=== PATIENT | male | born 1955 | race Caucasian/White ===

== ENCOUNTER 2019-05-08 07:37 | Outpatient (RCR) | payer BC, SELFPAY ==
[2019-02-10 07:38] LABS: INR 2.5; Prothrombin Time 26.2 Seconds (9.64-11.0)
[2019-05-08 08:07] LABS: INR 2.4; Prothrombin Time 24.3 Seconds (9.64-11.0)
== END 2019-05-11 23:59 | disposition home or self-care (01) ==
LOC: CHSLAB 07:37
PROVIDERS: PCP Internal Medicine; Visit Provider Internal Medicine
DX: Z79.01 Long term (current) use of anticoagulants (principal)
CPT/HCPCS: 36415; 85610

== ENCOUNTER 2019-08-27 08:29 | Outpatient (RCR) | payer BC, SELFPAY ==
[2019-06-10 12:48] LABS: Prothrombin Time 29.5 Seconds (9.64-11.0)
[2019-07-15 10:47] LABS: INR 2.2; Prothrombin Time 21.9 Seconds (9.64-11.0)
[2019-08-27 09:14] LABS: INR 2.1; Prothrombin Time 21.1 Seconds (9.64-11.0)
== END 2019-09-08 23:59 | disposition home or self-care (01) ==
LOC: CHSLAB 08:29
PROVIDERS: PCP Internal Medicine; Visit Provider Internal Medicine
DX: Z79.01 Long term (current) use of anticoagulants (principal)
CPT/HCPCS: 36415; 85610

== ENCOUNTER 2019-10-01 06:57 | Outpatient (CLI) | payer BC, SELFPAY ==
[2019-10-01 07:11] LABS: Appearance Urine Clear (Clear); Basophils Absolute Auto 0.09 K/mm3 (0.00-0.10); Basophils Percent Auto 0.8 % (0.0-1.0); Bilirubin Urine Negative (Negative); Color Urine Yellow (Yellow); Eosinophils Absolute Auto 0.42 K/mm3 (0.02-0.50); Eosinophils Percent Auto 3.7 % (1.0-6.0); Glucose Urine UA Negative (Negative); Hemoglobin 15.5 g/dL (14.0-18.0); Immature Granulocyte Absolute 0.04 K/mm3 (0.00-0.00); Immature Granulocyte Percent A 0.3 % (0.0-0.0); Ketones Urine Negative (Negative); Leukocyte Esterase Ur Negative (Negative); Lymphocytes Absolute Auto 2.38 K/mm3 (1.10-4.50); Lymphocytes Percent Auto 20.8 % (18.0-42.0); Mean Corpuscular Hemoglobin 28.8 pg (27.0-31.0); Mean Corpuscular Volume 87.2 fL (78.0-102.0); Mean Platelet Volume 9.7 fl (8.7-11.0); Monocytes Absolute Auto 0.89 K/mm3 (0.10-0.90); Monocytes Percent Auto 7.8 % (2.0-11.0); Neutrophils Absolute Auto 7.6 K/mm3 (1.7-7.2); Neutrophils Percent Auto 66.6 % (50.0-70.0); Nitrate Urine Negative (Negative); Platelet Count Result 310 K/mm3 (150-420); Protein Urine Negative (Negative); Red Blood Count 5.39 M/mm3 (4.70-6.10); Specific Grav Ur 1.025 (1.010-1.020); Urobilinogen Urine 0.2 mg/dL (0.2-1.0); White Blood Count 11.4 K/mm3 (4.8-10.8); pH Urine 5.5 (5.0-8.0)
[2019-10-01 07:16] LABS: Add Urine Microscopic? YES; Bacteria Urine None seen /hpf; Blood Urine Trace-Intact (Negative); RBC Urine 0-2 /hpf (0-2); WBC Urine 0-3 /hpf (0-3)
[2019-10-01 07:21] LABS: INR 2.7; Prothrombin Time 26.5 Seconds (9.64-11.0)
[2019-10-01 09:24] LABS: Alanine Aminotransferase 32 U/L (16-63); Albumin Level 3.9 g/dL (3.4-5.0); Alkaline Phosphatase 126 U/L (46-116); Anion Gap 13.2 mmol/L (7-16); Aspartate Amino Transferase 19 U/L (15-37); Bilirubin,Total 0.2 mg/dL (0.00-1.00); Blood Urea Nitrogen 13 mg/dL (7-18); Calcium 8.9 mg/dL (8.5-10.1); Carbon Dioxide 30 mmol/L (21-32); Chloride 103 mmol/L (98-108); Cholesterol 160 mg/dL (0-200); Estimated Glomerular Filt Rate > 60; Glucose 90 mg/dL (70-99); HDL Direct 29 mg/dL (40-60); LDL Cholesterol Calculated 34 mg/dL (<130); Osmolality Calculated 294 mOsm/kg (285-295); Potassium 4.2 mmol/L (3.5-5.1); Sodium 142 mmol/L (136-145); Total Protein 7.1 g/dL (6.4-8.2); Triglycerides 486 mg/dL (0-150)
[2019-10-01 09:27] LABS: LDL Cholesterol Direct 61 mg/dL (0-130)
== END 2019-10-01 06:58 ==
PROVIDERS: PCP Internal Medicine; Visit Provider Internal Medicine
DX: Z79.01 Long term (current) use of anticoagulants (principal); E78.5 Hyperlipidemia, unspecified; Z12.5 Encounter for screening for malignant neoplasm of prostate; Z00.00 Encounter for general adult medical examination without abnormal findings
CPT/HCPCS: 36415; 80053; 80061; 81001; 83721; 84153; 85025; 85610; G0103

== ENCOUNTER 2019-10-23 09:46 | Outpatient (CLI) | payer BC, SELFPAY ==
--- NOTE | ~2019-10-23 | CT_ITS ---
EXAMINATION: CT lung screening DATE: 10/23/2019 10:17 INDICATION: Personal history of tobacco dependence, current smoker with 35 pack year history TECHNIQUE: Computed tomography (CT) of the chest was performed without intravenous contrast. The dose -length product (DLP) was 408.17 mGy-cm. Automated exposure control and iterative reconstruction tech TNC were employed. COMPARISON: 07/31/2018 FINDINGS: There is moderate emphysema. No suspicious pulmonary nodules are identified. Again seen are chronic and unchanged subpleural round glass and reticular opacities with an upper lung zone predomi nance, consistent with chronic interstitial lung disease. The lungs are free of focal airspace opacit ies. There is no pleural effusion or pneumothorax. Calcified pulmonary nodules and calcified right hi lar and mediastinal lymph nodes are consistent with old granulomatous disease. No pathologically enla rged thoracic lymph nodes are identified. The heart size is normal. There is moderate thoracic spondy losis. There is a 12 mm cyst of the right hepatic lobe. Changes of anterior fusion are noted in the lower cervical spine. IMPRESSION: 1. Lung-RADS category 1: Negative. Continue annual screening with noncontrast low-dose chest CT in 12 months. Reviewed, dictated and finalized at location A. IMPRESSION: 1. Lung-RADS category 1: Negative. Continue annual screening with noncontrast l ow-dose chest CT in 12 months.
== END 2019-10-23 09:47 | disposition home or self-care (01) ==
LOC: CHSIMG 09:48
PROVIDERS: PCP Internal Medicine; Visit Provider Internal Medicine
DX: Z12.2 Encounter for screening for malignant neoplasm of respiratory organs (principal); Z72.0 Tobacco use
CPT/HCPCS: G0297

== ENCOUNTER 2020-01-20 08:27 | Outpatient (RCR) | payer BC, SELFPAY ==
[2019-11-12 07:51] LABS: INR 3.3; Prothrombin Time 33.1 Seconds (9.64-11.0)
[2019-12-18 10:55] LABS: Prothrombin Time 29.5 Seconds (9.64-11.0)
[2020-01-20 09:01] LABS: INR 4.6; Prothrombin Time 45.3 Seconds (9.64-11.0)
== END 2020-02-10 23:59 | disposition home or self-care (01) ==
LOC: CHSLAB 08:27
PROVIDERS: PCP Internal Medicine; Visit Provider Internal Medicine
DX: Z79.01 Long term (current) use of anticoagulants (principal)
CPT/HCPCS: 36415; 85610

== ENCOUNTER 2020-04-01 10:07 | Outpatient (RCR) | payer BC, OTHER, SELFPAY ==
[2020-02-23 11:40] LABS: INR 2.4; Prothrombin Time 25.1 Seconds (9.50-12.10)
[2020-04-01 10:28] LABS: INR 3.3; Prothrombin Time 33.5 Seconds (9.50-12.10)
== END 2020-05-23 23:59 | disposition home or self-care (01) ==
LOC: CHSLAB 10:07
PROVIDERS: PCP Internal Medicine; Visit Provider Internal Medicine
DX: Z79.01 Long term (current) use of anticoagulants (principal)
CPT/HCPCS: 36415; 85610

== ENCOUNTER 2020-07-07 10:46 | Outpatient (RCR) | payer OTHER, SELFPAY ==
[2020-06-01 10:12] LABS: INR 4.4
[2020-07-07 11:05] LABS: INR 3.4; Prothrombin Time 34.5 Seconds (9.50-12.10)
== END 2020-08-30 23:59 | disposition home or self-care (01) ==
LOC: CHSLAB 10:46
PROVIDERS: PCP Internal Medicine; Visit Provider Internal Medicine
DX: Z79.01 Long term (current) use of anticoagulants (principal)
CPT/HCPCS: 36415; 85610

== ENCOUNTER 2020-07-07 13:04 | Outpatient (CLI) | payer OTHER, SELFPAY ==
--- NOTE | ~2020-07-07 | XR_ITS ---
EXAMINATION: XR chest 2V EXAM DATE: 07/07/2020 13:29 INDICATION: COPD, shortness of breath. TECHNIQUE: Frontal and lateral projections of the chest obtained and reviewed. There is no prior ana dy for comparison. FINDINGS: The lungs are hyperinflated which can be seen with chronic obstructive pulmonary disease ( a clinical diagnosis of functional impairment), but is not diagnostic of it. The lungs are clear. Th ere are no pleural effusions. The cardiomediastinal silhouette is within normal limits. There is no pneumothorax suspected. Mild thoracic spondylosis. Cervical fusion hardware. IMPRESSION: 1. No acute cardiopulmonary findings. 2. Hyperinflation. Reviewed, dictated and finalized at location B.
== END 2020-07-07 13:05 | disposition home or self-care (01) ==
LOC: CHSIMG 13:06
PROVIDERS: PCP Internal Medicine; Visit Provider Internal Medicine
DX: J44.1 Chronic obstructive pulmonary disease with (acute) exacerbation (principal)
CPT/HCPCS: 71046

== ENCOUNTER 2020-09-30 07:14 | Outpatient (CLI) | payer OTHER, SELFPAY ==
[2020-09-30 07:36] LABS: Basophils Absolute Auto 0.11 K/mm3 (0.00-0.10); Basophils Percent Auto 1.1 % (0.0-1.0); Eosinophils Absolute Auto 0.32 K/mm3 (0.02-0.50); Eosinophils Percent Auto 3.1 % (1.0-6.0); Hematocrit 47.8 % (40.0-54.0); Hemoglobin 15.5 g/dL (14.0-18.0); Immature Granulocyte Absolute 0.04 K/mm3 (0.00-0.00); Immature Granulocyte Percent A 0.4 % (0.0-0.0); Lymphocytes Absolute Auto 2.48 K/mm3 (1.10-4.50); Lymphocytes Percent Auto 23.9 % (18.0-42.0); Mean Corpuscular HGB Conc 32.4 g/dL (32.0-36.0); Mean Corpuscular Hemoglobin 28.4 pg (27.0-31.0); Mean Corpuscular Volume 87.5 fL (78.0-102.0); Mean Platelet Volume 10.1 fl (8.7-11.0); Monocytes Absolute Auto 0.79 K/mm3 (0.10-0.90); Monocytes Percent Auto 7.6 % (2.0-11.0); Neutrophils Absolute Auto 6.6 K/mm3 (1.7-7.2); Neutrophils Percent Auto 63.9 % (50.0-70.0); Platelet Count Result 357 K/mm3 (150-420); Red Blood Count 5.46 M/mm3 (4.70-6.10); Red Cell Distribution Width 14.4 % (11.6-14.4); White Blood Count 10.4 K/mm3 (4.8-10.8)
[2020-09-30 07:38] LABS: Add Urine Microscopic? YES; Appearance Urine Clear (Clear); Bilirubin Urine Negative (Negative); Blood Urine 1+ (Negative); Color Urine Light Yellow (Yellow); Glucose Urine UA Negative (Negative); Ketones Urine Negative (Negative); Leukocyte Esterase Ur Negative (Negative); Nitrate Urine Negative (Negative); Protein Urine Negative (Negative); Specific Grav Ur >= 1.030 (1.010-1.020); Urobilinogen Urine 0.2 mg/dL (0.2-1.0); pH Urine 5.5 (5.0-8.0)
[2020-09-30 07:58] LABS: INR 4.8; Prothrombin Time 47.6 Seconds (9.50-12.10)
[2020-09-30 08:21] LABS: RBC Urine 0-2 /hpf (0-2); WBC Urine None seen /hpf (0-3)
[2020-09-30 08:22] LABS: Bacteria Urine None seen /hpf
[2020-09-30 08:25] LABS: Alanine Aminotransferase 25 U/L (16-63); Albumin Level 3.9 g/dL (3.4-5.0); Alkaline Phosphatase 114 U/L (46-116); Anion Gap 10 mmol/L (8-16); Aspartate Amino Transferase 12 U/L (15-37); Bilirubin,Total 0.2 mg/dL (0.00-1.00); Blood Urea Nitrogen 14 mg/dL (7-18); Calcium 8.8 mg/dL (8.5-10.1); Carbon Dioxide 30 mmol/L (21-32); Chloride 105 mmol/L (98-108); Cholesterol 166 mg/dL (0-200); Estimated Glomerular Filt Rate > 60; Glucose 96 mg/dL (70-99); HDL Direct 28 mg/dL (40-60); LDL Cholesterol Calculated 53 mg/dL (<130); Osmolality Calculated 300 mOsm/kg (285-295); Potassium 3.9 mmol/L (3.5-5.1); Prostate Specific Antigen 1.4 ng/mL (< OR = 4.0); Sodium 145 mmol/L (136-145); Thyroid Stimulating Hormone 4.07 uIU/mL (0.36-3.74); Total Protein 7.2 g/dL (6.4-8.2); Triglycerides 426 mg/dL (0-150)
[2020-09-30 08:26] LABS: LDL Cholesterol Direct 76 mg/dL (0-130)
== END 2020-09-30 07:15 | disposition home or self-care (01) ==
LOC: CHSLAB 07:15
PROVIDERS: PCP Internal Medicine; Visit Provider Internal Medicine
DX: Z00.00 Encounter for general adult medical examination without abnormal findings (principal); Z79.01 Long term (current) use of anticoagulants; Z12.5 Encounter for screening for malignant neoplasm of prostate
CPT/HCPCS: 36415; 80053; 80061; 81001; 83721; 84153; 84443; 85025; 85610; G0103

== ENCOUNTER 2021-01-05 09:22 | Outpatient (RCR) | payer OTHER, SELFPAY ==
[2020-11-01 10:41] LABS: INR 4.5; Prothrombin Time 45.1 Seconds (9.50-12.10)
[2020-12-06 10:19] LABS: INR 4.3; Prothrombin Time 42.9 Seconds (9.50-12.10)
[2021-01-05 09:50] LABS: INR 2.6; Prothrombin Time 26.6 Seconds (9.50-12.10)
== END 2021-01-30 23:59 | disposition home or self-care (01) ==
LOC: CHSLAB 09:22
PROVIDERS: PCP Internal Medicine; Visit Provider Internal Medicine
DX: Z79.01 Long term (current) use of anticoagulants (principal)
CPT/HCPCS: 36415; 85610

== ENCOUNTER 2021-02-07 07:17 | Outpatient (RCR) | payer OTHER, SELFPAY ==
[2021-02-07 07:41] LABS: INR 2.1; Prothrombin Time 21.8 Seconds (9.50-12.10)
== END 2021-05-08 23:59 | disposition home or self-care (01) ==
LOC: CHSLAB 07:17
PROVIDERS: PCP Internal Medicine; Visit Provider Internal Medicine
DX: Z79.01 Long term (current) use of anticoagulants (principal)
CPT/HCPCS: 36415; 85610